=== PATIENT | female | born 2000 | race Caucasian/White ===

== ENCOUNTER 2018-09-28 05:23 | Day surgery (SDC) | payer OTHER | END 2018-09-28 13:00 | disposition home or self-care (01) | LOC: CIR.AMB 05:23 → EDBD 10:30 → CIR.AMB 13:00 | DX: H72.92 Unspecified perforation of tympanic membrane, left ear (principal); H61.812 Exostosis of left external canal; H66.92 Otitis media, unspecified, left ear ==

== ENCOUNTER 2023-03-10 05:05 | Day surgery (SDC) | payer OTHER | END 2023-03-10 15:00 | disposition home or self-care (01) | LOC: CIR.AMB 05:05 | PROVIDERS: ATTEND Otolaryngology Otology & Neurotology | DX: H72.92 Unspecified perforation of tympanic membrane, left ear (principal); H71.12 Cholesteatoma of tympanum, left ear; D68.9 Coagulation defect, unspecified; Z20.822 Contact with and (suspected) exposure to COVID-19 ==